=== PATIENT | male | born 1965 | race African-American/Black ===

== ENCOUNTER 2016-12-04 14:36 | Emergency (ER) | payer OTHER ==
[~2016-12-04] VITALS: Ht 188 cm; Wt 129.3 kg
[2016-12-04 16:11] VITALS: BP 134/91
== END 2016-12-04 16:11 | disposition home or self-care (01) ==
LOC: ED 14:36
DX: N20.0 Calculus of kidney (principal); E11.9 Type 2 diabetes mellitus without complications
CPT/HCPCS: J1885; J7030